=== PATIENT | female | born 1990 | race Caucasian/White ===

== ENCOUNTER 2016-08-23 16:20 | Observation (INO) | payer OTHER ==
[2016-08-23] MEDS ORDERED: MORPHINE SULFATE 10 MG/ML SYRINGE IV ONE (17:35)
[2016-08-23] MEDS ORDERED: ONDANSETRON 4 MG/2 ML VIAL IVP STA (17:35)
[2016-08-23] MEDS ORDERED: KETOROLAC 30 MG/ML 1 ML VIAL IVP STA (17:35)
[2016-08-23] MEDS ORDERED: ACETAMINOPHEN TAB 325 MG TAB PO STA (18:07)
[2016-08-23] MEDS ORDERED: METOCLOPRAMIDE 5 MG/ML 2 ML VIAL IVP STA (18:08)
[2016-08-23] MEDS ORDERED: diphenhydrAMINE 50 MG/ML 1 ML VIAL IVP STA (18:08)
[2016-08-23 18:12] LABS: Basophils % (A) 0 %; CH 31.7; CHCM 34.6; Eosinophils # (A) 0.3 k/uL (0-0.7); Eosinophils % (A) 3 %; HCT 39.6 % (34.0-46.0); HDW 2.17; HGB 13.9 gm/dL (11.4-16.0); Luc # (Auto) 0.12; Luc % (Auto) 1; Lymphocytes # (A) 2.5 k/uL (1.0-4.8); Lymphocytes % (A) 24 %; MCH 32.3 pg (25.0-35.0); MCHC 35.1 g/dL (31.0-37.0); MCV 91.9 fL (80.0-100.0); Mean Platelet Volume 7.5; Monocytes # (A) 0.4 k/uL (0-1.0); Monocytes % (A) 4 %; Neutrophils # (A) 7.1 k/uL (1.3-7.7); Neutrophils % (A) 68 %; RBC 4.31 m/uL (3.80-5.40); RDW 12.8 % (11.5-15.5); WBC 10.4 k/uL (3.8-10.6); WBC (Perox) 9.78
--- NOTE | 2016-08-23 18:21 | ED ---
General Adult HPI - General Chief complaint: Abdominal Pain Stated complaint: Flank Pain Time Seen by Provider: 08/23/16 17:16 Source: patient Mode of arrival: ambulatory Limitations: no limitations - History of Present Illness Initial comments: Patient is a 26-year-old female who presents with a chief complaint of left- sided flank pain. Patient states that she's had a dull ache/fullness on the left side of her abdomen for a week now. She states this morning she woke up with a very sharp pain. She describes the pain as stabbing, starting in the left flank, radiating to the left groin. She cannot identify any aggravating or alleviating factors. She has never had similar incidences before, does not have a history of kidney stones. Patient states that she has also had some vaginal bleeding. She thinks she may be on her normal menstrual cycle however she has been bleeding longer this time. She does not report a concerning amount of blood. Patient states that she is unsure of her status. Patient is a . She does not have a history of PID, or other STDs. Onset/Timin -: days(s) Location: abdomen, left Radiation: other (Groin) Severity scale (1-10): 8 Quality: sharp Consistency: intermittent Improves with: none Worsens with: none Associated Symptoms: nausea/vomiting Treatments Prior to Arrival: none - Related Data Home Medications Medication Instructions Recorded Confirmed No Known Home Medications [No 08/23/16 08/23/16 Known Home Medications] Allergies Allergy/AdvReac Type Severity Reaction Status Date / Time No Known Allergies Allergy Verified 07/25/14 11:33 Review of Systems ROS Statement: Those systems with pertinent positive or pertinent negative responses have been documented in the HPI. Patient denies dizziness, headache, lightheadedness, visual changes, shortness of breath, chest pain, constipation, diarrhea. Patient does admit to urinary frequency, nausea, vomiting, and abdominal pain. ROS Other: All systems not noted in ROS Statement are negative. Past Medical History Past Medical History: No Reported History History of Any Multi-Drug Resistant Organisms: None Reported Past Surgical History: Section, Tonsillectomy Past Anesthesia/Blood Transfusion Reactions: Postoperative Nausea & Vomiting ( PONV) Past Psychological History: No Psychological Hx Reported Smoking Status: Never smoker Past Alcohol Use History: None Reported Past Drug Use History: Marijuana - Past Family History Mother Family Medical History: Hypertension General Exam Limitations: no limitations General appearance: alert, other (Patient appears uncomfortable) Head exam: Present: atraumatic, normocephalic Eye exam: Present: normal appearance ENT exam: Present: mucous membranes moist Neck exam: Present: normal inspection Respiratory exam: Present: normal lung sounds bilaterally Cardiovascular Exam: Present: regular rate, normal rhythm GI/Abdominal exam: Present: soft, tenderness (Patient has CVA tenderness in the left flank. Patient has suprapubic, right lower, left lower quadrant tenderness to palpation. Abdomen is non-peritoneal) Rectal exam: Present: deferred Extremities exam: Present: normal inspection Back exam: Present: CVA tenderness (L) Neurological exam: Present: alert, oriented X3, CN II-XII intact, normal gait Psychiatric exam: Present: normal affect, normal mood Skin exam: Present: warm, dry, intact Course Vital Signs 08/23/16 08/23/16 08/23/16 16:23 18:06 20:35 Temperature 98.5 F 97.5 F L Pulse Rate 74 64 61 Respiratory 16 18 15 Rate Blood Pressure 107/57 103/58 106/55 O2 Sat by Pulse 97 98 99 Oximetry Medical Decision Making - Medical Decision Making Patient is a 26-year-old female presents with a chief complaint of left flank, and abdominal pain. History and physical exam is consistent with a renal stone. We'll send a BC, BMP, urinalysis, and test. If test is negative, I intend to give patient morphine, Toradol, Zofran, and sent for a computed tomography scan. Evaluation shows a positive POC test. Follow-up quantitative is just over 1000. This point the patient will be sent for an ultrasound of the abdomen , ultrasound of the pelvis. Ultrasound was concerning for a 3.5 cm mildly vascular solid mass adjacent to the left ovary. There is free fluid within the adnexa that appears to be blood. Several attempts were made to contact Dr. Chen, [facility] on-call though we were unsuccessful. Dr. Case was contacted for OB consultation. Dr. Colvin states that he will try to get a hold of Dr. Chen. In the meantime we will move forward with admission for observation, and consult to [facility]. Reexamination, the patient's abdomen remains non-peritoneal. Her vital signs are stable. She was updated on results. I discussed with her admission for serial abdominal exams, and consult [facility]. Her and her are agreeable with this plan at this time. 9:49 PM I spoke with Dr. Chen who agrees that the patient should be admitted for observation. At this time she would like to send liver profile, type and screen , and would like pharmacy to dose methotrexate. - Lab Data Result diagrams: 08/23/16 18:02 08/23/16 18:02 Lab Results 08/23/16 08/23/16 08/23/16 Range/Units 17:31 18:02 18:02 WBC 10.4 (3.8-10.6) k/uL RBC 4.31 (3.80-5.40) m/uL Hgb 13.9 (11.4-16.0) gm/dL Hct 39.6 (34.0-46.0) % MCV 91.9 (80.0-100.0) fL MCH 32.3 (25.0-35.0) pg MCHC 35.1 (31.0-37.0) g/dL RDW 12.8 (11.5-15.5) % Plt Count 290 (150-450) k/uL Neutrophils % 68 % Lymphocytes % 24 % Monocytes % 4 % Eosinophils % 3 % Basophils % 0 % Neutrophils # 7.1 (1.3-7.7) k/uL Lymphocytes # 2.5 (1.0-4.8) k/uL Monocytes # 0.4 (0-1.0) k/uL Eosinophils # 0.3 (0-0.7) k/uL Basophils # 0.0 (0-0.2) k/uL Sodium 140 (137-145) mmol/L Potassium 3.8 (3.5-5.1) mmol/L Chloride 109 H (98-107) mmol/L Carbon Dioxide 22 (22-30) mmol/L Anion Gap 9 mmol/L BUN 12 (7-17) mg/dL Creatinine 0.52 (0.52-1.04) mg/dL Est GFR (MDRD) Af Amer >60 (>60 ml/min/1.73 sqM) Est GFR (MDRD) Non-Af >60 (>60 ml/min/1.73 sqM) Glucose 80 (74-99) mg/dL Calcium 9.2 (8.4-10.2) mg/dL HCG, Quant mIU/mL Urine HCG, Qual Detected (Not Detectd) 08/23/16 Range/Units 18:02 WBC (3.8-10.6) k/uL RBC (3.80-5.40) m/uL Hgb (11.4-16.0) gm/dL Hct (34.0-46.0) % MCV (80.0-100.0) fL MCH (25.0-35.0) pg MCHC (31.0-37.0) g/dL RDW (11.5-15.5) % Plt Count (150-450) k/uL Neutrophils % % Lymphocytes % % Monocytes % % Eosinophils % % Basophils % % Neutrophils # (1.3-7.7) k/uL Lymphocytes # (1.0-4.8) k/uL Monocytes # (0-1.0) k/uL Eosinophils # (0-0.7) k/uL Basophils # (0-0.2) k/uL Sodium (137-145) mmol/L Potassium (3.5-5.1) mmol/L Chloride (98-107) mmol/L Carbon Dioxide (22-30) mmol/L Anion Gap mmol/L BUN (7-17) mg/dL Creatinine (0.52-1.04) mg/dL Est GFR (MDRD) Af Amer (>60 ml/min/1.73 sqM) Est GFR (MDRD) Non-Af (>60 ml/min/1.73 sqM) Glucose (74-99) mg/dL Calcium (8.4-10.2) mg/dL HCG, Quant 1014.8 mIU/mL Urine HCG, Qual (Not Detectd) Disposition Clinical Impression: Ectopic of ovary, Nausea and vomiting, Flank pain, Left lower quadrant pain Disposition: ADMITTED IP TO THIS [facility] Condition: Fair Referrals: None,Stated [Primary Care Provider] - 1-2 days Decision to Admit Reason: Admit from EC
[2016-08-23 18:22] LABS: Anion Gap 9 mmol/L; Blood Urea Nitrogen 12 mg/dL (7-17); Calcium 9.2 mg/dL (8.4-10.2); Carbon Dioxide 22 mmol/L (22-30); Chloride 109 mmol/L (98-107); Glucose 80 mg/dL (74-99); Non-African American GFR(MDRD) >60 (>60 ml/min/1.73 sqM); Potassium 3.8 mmol/L (3.5-5.1); Sodium 140 mmol/L (137-145)
--- NOTE | 2016-08-23 20:02 | US ---
EXAMINATION TYPE: US abdomen complete DATE OF EXAM: 08/23/2016 COMPARISON: NONE CLINICAL HISTORY: Pain. Lt back/flank pain x 2 days, newly EXAM MEASUREMENTS: Liver Length: 17.6 cm Gallbladder Wall: 0.3 cm CBD: 0.4 cm Spleen: 10.7 cm Right Kidney: 10.4 x 5.0 x 4.7 cm Left Kidney: 10.4 x 4.4 x 4.6 cm Pancreas: wnl Liver: wnl Gallbladder: wnl Evidence for sonographic Montanez's sign: no CBD: wnl Spleen: small inferior splenule seen, wnl Right Kidney: wnl Left Kidney: wnl Upper IVC: wnl Abd Aorta: distal portion obscured by bowel gas, otherwise wnl The liver is homogenous. The intrahepatic portion of the IVC and proximal abdominal aorta are within normal limits. There is no evidence of cholelithiasis. Common bile duct is unremarkable. The visu alized portions of the pancreas are homogenous. The spleen is unremarkable. Kidneys are symmetric a nd free of hydronephrosis. No renal lesions are seen. IMPRESSION: NO ACUTE PROCESS; NO FOCAL FINDINGS.
--- NOTE | 2016-08-23 20:07 | US ---
EXAMINATION TYPE: US OB <=14 wks transvag DATE OF EXAM: 08/23/2016 COMPARISON: NONE CLINICAL HISTORY: Pain. Lt back pain x 2 days, light bleeding on and off for 10 days EXAM PERFORMED: OBTA/OBTV EXAM MEASUREMENTS: GESTATIONAL AGE / DATING Physician Established: not established Dates by LMP: (6 weeks/3 days) EDC: 04/15/2017 Dates by First Scan: NURSING SCHEDULER Dates by Current Scan for: N/A MATERNAL ANATOMY Uterus: 9.2 x 5.4 x 4.7cm Right Ovary: 2.6 x 1.8 x 2.0cm Left Ovary: 2.9 x 3.0 x 2.4cm Post CDS / Adnexa: Free fluid noted with low level echoes indicative of blood Presence of free fluid: yes as described above Presence of corpus luteal cyst: left ovary = 2.0cm Presence of subchorionic bleed: no GESTATION / SURVEY IUP: No IUP seen at this time Date of LMP: 07/09/2016 Beta HcG (if available): pending [place] is a 3.5 cm mean diameter solid lesion noted adjacent to, or apart of, the inferior margin of th e left ovary. This finding shows mild vascularity within. IMPRESSION: 1. NO INTRAUTERINE . 2. MODERATE CUL-DE-SAC FLUID WITH LOW LEVEL ECHOES THROUGHOUT, CONSISTENT WITH HEMOPERITONEUM. 3. SUSPICIOUS LEFT ADNEXAL SOLID LESION.
[2016-08-23] MEDS ORDERED: NALOXONE 0.4 MG/ML 1 ML VIAL IV PRN (21:50)
[2016-08-23] MEDS ORDERED: METHOTREXATE SODIUM (PF) 25 MG/ML 2 ML VIAL IM ONE ×2 (22:15)
[2016-08-23] MEDS: MORPHINE SULFATE 4 MG/ML SYRINGE IV PRN (22:52)
[2016-08-24] MEDS: LACTATED RINGERS 1,000 ML IV SCH ×2 (00:11→11:21)
[2016-08-24 00:30] VITALS: BMI 26.4
[2016-08-24] MEDS: MORPHINE SULFATE 4 MG/ML SYRINGE IV PRN (01:52)
--- NOTE | 2016-08-24 03:55 | P.HPOB ---
History of Present Illness H&P Date: 08/24/16 (Increasing abdominal pain, nausea and vomiting.) Chief Complaint: Increasing abdominal pain, nausea and vomiting. This is a 26-year-old white female 3 para 2002 last menstrual period at 6-5/7 weeks' gestation. Patient presented through the emergency room last night with left lower quadrant pain. Evaluation revealed urine hCG which came back positive, confirmed by Bhcg of approximately 1,014. Ultrasound revealed a 3.5 cm solid appearing left adnexal mass that appeared to be intact, no heart rate, nothing in the intrauterine cavity. Patient was hemodynamically stable, her pain was well controlled, hemoglobin 13.9, and after discussion decision was made to treat the patient with methotrexate. This was dosed per pharmacy and given to her at approximately 11 PM. She was given morphine sulfate with good pain relief and brought to observation for monitoring throught the night. At approximate 2 AM the patient complained of increasing left lower quadrant pain. Morphine sulfate was again given but this time with no relief. Her pain has accelerated since that time, she reports it to be 8/10 and is now experiencing vomiting. Vital signs have remained stable, pulse currently 64, blood pressure 121/74. On examination however, she is experiencing rebound and guarding as noted below. Past medical history is essentially negative. Past surgical history section 2012, repeat 2014. She has had a previous tonsillectomy and adenoidectomy. ALLERGIES none known. Current medications none. Social history patient is , she denies alcohol tobacco or drug use. On exam this is a pleasant white female, 5 foot 1 inch, 140 pounds, vital signs are stable as noted above, temperature 97.2, 99% O2 saturation, respirations 16 , pulse 64, blood pressure 121/74. HEENT examination reveals good dentition, no obvious thyromegaly. The chest is clear in all iglesias anteriorly and posteriorly. Cardiac exam reveals regular rate and rhythm with no murmur click or rub. Extremities reveal no edema. Abdomen is soft, exquisitely tender in the left lower quadrant with rebound and guarding. She is also tender suprapubically. Pelvic examination was is deferred until the operating room setting. Labs include hemoglobin 13.9, hematocrit 39.6, white count 10.4, platelets 290, 000. Blood type is A+. Impression: Suspect ruptured left ectopic . Plan: I have discussed with the patient and her are planning at this time. We will proceed with exploratory laparotomy, possible left salpingostomy , possible left salpingo-oophorectomy and surgery as deemed necessary. I've reviewed with her the risks of surgery to include but not be exclusive of bleeding, infection, perforation or damage to bowel, bladder, ureters or indeed any pelvic or abdominal organs. She understands the possible need for blood transfusion and infectious diseases to which she would be exposed. She understands the risks of anesthesia, aspiration, nerve damage or even . All questions are answered and I believe the patient and her both understand our discussion thoroughly. Seizure team is aware and on way. Review of Systems As noted in HPI Past Medical History Past Medical History: No Reported History History of Any Multi-Drug Resistant Organisms: None Reported Past Surgical History: Section, Tonsillectomy Past Anesthesia/Blood Transfusion Reactions: Postoperative Nausea & Vomiting ( PONV) Past Psychological History: No Psychological Hx Reported Smoking Status: Never smoker Past Alcohol Use History: None Reported Past Drug Use History: None Reported - Past Family History Mother Family Medical History: Cancer Additional Family Medical History / Comment(s): breast cancer Medications and Allergies Home Medications Medication Instructions Recorded Confirmed Type No Known Home Medications [No 08/23/16 08/24/16 History Known Home Medications] Allergies Allergy/AdvReac Type Severity Reaction Status Date / Time No Known Allergies Allergy Verified 08/24/16 00:20 Exam - Vital Signs Vital signs: Vital Signs Temp Pulse Pulse Resp BP BP Pulse Ox 08/24/16 03:18 97.2 F L 64 16 121/74 97 08/24/16 00:30 98.0 F 73 16 112/68 100 08/23/16 23:12 98.0 F 66 16 102/58 98 08/23/16 20:35 97.5 F L 61 15 106/55 99 08/23/16 18:06 64 18 103/58 98 08/23/16 16:23 98.5 F 74 16 107/57 97 Intake and Output 08/23/16 08/23/16 08/24/16 14:59 22:59 06:59 Other: Weight 63.503 kg 63.503 kg Patient Weight 08/24/16 06:59 Weight 63.503 kg See dictation under HPI Results Result Diagrams: 08/23/16 18:02 08/23/16 18:02 Abnormal Lab Results - Last 24 Hours (Table) 08/23/16 Range/Units 18:02 Chloride 109 H (98-107) mmol/L Assessment and Plan Plan: At this time we will proceed to the operating room for exploratory laparotomy, possible left salpingostomy, possible left salpingo-oophorectomy and surgery as deemed necessary. The patient is declining option for bilateral tubal ligation. Risks of operating room, anesthesia and procedure have all been discussed with the patient in detail, including bleeding, infection, perforation or damage to bowel, bladder, ureters, blood vessels or indeed any pelvic or abdominal organs. She understands the risk of anesthesia, aspiration , nerve damage or even . All questions of been answered and I believe she and her both understand our discussion without question. Time with Patient: Greater than 30
[2016-08-24] MEDS ORDERED: METOCLOPRAMIDE 5 MG/ML 2 ML VIAL IVP ONE (04:50)
[2016-08-24] MEDS ORDERED: SUCCINYLCHOLINE CHLORIDE 100 MG/5 ML SYR IV ONE (04:59)
[2016-08-24] MEDS ORDERED: fentaNYL (PF) 50 MCG/ML 2 ML AMP ONE (04:59)
[2016-08-24] MEDS ORDERED: ONDANSETRON 4 MG/2 ML VIAL ONE (04:59)
[2016-08-24] MEDS ORDERED: KETOROLAC 30 MG/ML 1 ML VIAL ONE (04:59)
[2016-08-24] MEDS ORDERED: ROCURONIUM BROMIDE 10 MG/ML 10 ML VIAL IV ONE (04:59)
[2016-08-24] MEDS ORDERED: GLYCOPYRROLATE 0.2 MG/ML 2 ML VIAL ONE (04:59)
[2016-08-24] MEDS ORDERED: MIDAZOLAM 2 MG/2 ML VIAL ONE (04:59)
[2016-08-24] MEDS ORDERED: NEOSTIGMINE 1 MG/ML 10 ML VIAL ONE (04:59)
[2016-08-24] MEDS ORDERED: PROPOFOL 10 MG/ML 20 ML VIAL IV ONE (04:59)
[2016-08-24] MEDS ORDERED: IV FLUID CONTINUATION 1,000 ML IV ONE (05:05)
[2016-08-24] MEDS ORDERED: SODIUM CHLORIDE 0.9% 50 ML with ceFAZolin 2,000 MG IV ONE ×2 (05:05)
[2016-08-24] MEDS ORDERED: CELLULOSE,OXIDIZED 1 EACH EACH MISCELLANE ONE (05:29)
[2016-08-24] MEDS ORDERED: LACTATED RINGERS 1,000 ML IV ONE (05:41)
[2016-08-24] MEDS ORDERED: ONDANSETRON 4 MG/2 ML VIAL IVP PRN (05:54)
[2016-08-24] MEDS ORDERED: METOCLOPRAMIDE 5 MG/ML 2 ML VIAL IVP PRN (05:54)
[2016-08-24] MEDS ORDERED: diphenhydrAMINE 50 MG/ML 1 ML VIAL IVP PRN (05:54)
[2016-08-24] MEDS ORDERED: ZOLPIDEM 5 MG TAB PO PRN (05:54)
[2016-08-24] MEDS ORDERED: IBUPROFEN 600 MG TAB PO PRN (05:54)
[2016-08-24] MEDS ORDERED: KETOROLAC 30 MG/ML 1 ML VIAL IVP PRN (05:54)
[2016-08-24] MEDS ORDERED: SIMETHICONE 80 MG CHEWABLE PO PRN (05:54)
[2016-08-24] MEDS ORDERED: Acetaminophen-Codeine 300-30mg TAB PO PRN (05:54)
--- NOTE | 2016-08-24 05:54 | P.OP ---
Date of Procedure: 08/24/16 Preoperative Diagnosis: Suspect ruptured left ectopic Postoperative Diagnosis: Ruptured left ectopic Procedure(s) Performed: Exploratory laparotomy, left salpingectomy Implants: Anesthesia: ROSIEA Surgeon: Deena Yeboah Estimated Blood Loss (ml): 300 IV fluids (ml): 800 Urine output (ml): 100 Pathology: other Condition: stable (Left fallopian tube) Disposition: PACU Indications for Procedure: Operative Findings: Description of Procedure: Patient is brought to the operating suite where a general anesthetic is administered without difficulty. She's placed in the dorsal supine position. Ellis catheter placed to direct drainage. The abdomen is prepped and draped in usual sterile fashion. The appropriate timeout was performed to assure proper patient procedure identification. 2 g of Ancef were given prophylactically. A low transverse incision is made over the top of the previous section scar. This was taken down to the subcutaneous tissue to the fascia. Fascia is isolated, scored and extended bilaterally with curved Aguilar scissors. Peritoneum was then tented with hemostats, opened with the Metzenbaum scissor and upon opening the peritoneal cavity approximately 300 mL of old blood and clot are encountered. The left tube and ovary are placed into the surgical field. The ovary appears normal, there is a ruptured left top completely obliterating the fimbriated end of the tube. For this reason, the left fallopian tube is removed. It is grasped with a Nayla clamp, clamped with a Nathalie, removed. The pedicle is tied with 0 Vicryl suture, flashed, and retied for excellent hemostasis. The left adnexa is placed back into the peritoneal cavity. The uterus and right ovary and tube are all visualized, inspected and noted to be normal. The pelvis is then generously irrigated with sterile saline. Interceed was used to wrap around the left adnexa and it is placed back gently into the peritoneal cavity. Peritoneum is closed with a single [id number] suture of 2-0 Vicryl. Fascia is closed in a running stitch of 0 Vicryl with over ligation in the midline. Subcutaneous tissue is irrigated, noted to be clean and dry. It is reapproximated with 2-0 Vicryl in a running fashion. 4-0 undyed Vicryl issues for final subcuticular closure. Steri-Strips and Mastisol are applied to the wound. Urine is noted to be clear in the Ellis tube. All sponge needle and enhancement counts are correct at the end of the procedure. Patient is brought back to the recovery room in very good condition with stable vital signs including blood pressure 104/62, pulse 52, 98% O2 saturation. Competitions: None. Patient's blood type is Rh+ and therefore Khadar was not indicated.
[2016-08-24] MEDS ORDERED: NALOXONE 0.4 MG/ML 1 ML VIAL IV PRN (05:56)
[2016-08-24] MEDS ORDERED: MORPHINE PCA 30 MG/30 ML SYRINGE IV PRN (05:56)
[2016-08-24 06:12] VITALS: RESP 16
[2016-08-24 11:23] LABS: Basophils % (A) 0 %; CH 31.9; CHCM 34.1; Eosinophils # (A) 0.1 k/uL (0-0.7); Eosinophils % (A) 1 %; HCT 37.1 % (34.0-46.0); HGB 12.7 gm/dL (11.4-16.0); Luc % (Auto) 1; Lymphocytes # (A) 1.3 k/uL (1.0-4.8); Lymphocytes % (A) 9 %; MCH 32.2 pg (25.0-35.0); MCHC 34.3 g/dL (31.0-37.0); Mean Platelet Volume 7.5; Monocytes # (A) 0.7 k/uL (0-1.0); Monocytes % (A) 5 %; Neutrophils # (A) 11.7 k/uL (1.3-7.7); Neutrophils % (A) 85 %; RBC 3.95 m/uL (3.80-5.40); RDW 12.3 % (11.5-15.5); WBC 13.8 k/uL (3.8-10.6); WBC (Perox) 14.03
[2016-08-24 11:30] LABS: ALT 27 U/L (9-52); AST 30 U/L (14-36); Alkaline Phosphatase 33 U/L (38-126); Anion Gap 11 mmol/L; Blood Urea Nitrogen 7 mg/dL (7-17); Calcium 8.2 mg/dL (8.4-10.2); Carbon Dioxide 20 mmol/L (22-30); Chloride 108 mmol/L (98-107); Glucose 98 mg/dL (74-99); Non-African American GFR(MDRD) >60 (>60 ml/min/1.73 sqM); Potassium 3.8 mmol/L (3.5-5.1); Sodium 139 mmol/L (137-145); Total Protein 5.6 g/dL (6.3-8.2)
[2016-08-24 17:39] VITALS: BP 122/62; PULSE 71; TEMP 97.9
[2016-08-25] MEDS ORDERED: ACETAMINOPHEN TAB 325 MG TAB PO PRN (05:55)
--- NOTE | 2016-08-26 12:14 | DS ---
DATE OF DISCHARGE: 08/24/2016 This is a 26-year-old white female, 3, para 2-0-0-2, estimated gestational age of 6-3/7th weeks who presented to the emergency room. She was noted to have a left sided ectopic , stable upon admission. Decision was made to proceed with methotrexate therapy, this was dosed by pharmacy and given at approximately 11 p.m. Throughout the night, the patient became much more uncomfortable with pain and began having vomiting. On examination, she had left sided rebound and guarding and decision was then made to go to the operating room for exploratory laparotomy. Please see my dictated history and physical for details. In the operating room, the patient was noted to have hemoperitoneum along with a ruptured left fimbrial . The left tube was removed, ovary appeared normal and was left in situ. The right tube and ovary as well as uterus appeared normal. Pelvis was generously irrigated, ( ) was wrapped around the left adnexa. Please see my dictated operative note for details. Estimated blood loss 300 mL. As the day progressed, the patient felt well. She was voiding, ambulating, passing flatus without difficulty. She was requested discharge home. She has 2 small children at home, felt well, denied light-headedness or dizziness, and was given a prescription for Tylenol No.3 to be used as needed for pain. I discussed with the patient that I felt that her discharge home was premature, however, she lives locally, has good family support and again requested discharge home. The patient was discharged home in good condition. I reminded her to follow up with me in the office in 2 weeks. I have reminded her no intercourse, tampons , or douching. She will use Tylenol No. 3 as needed for pain, and will alternate this with Ibuprofen products over the counter. I reviewed with her proper incisional care. I asked her to call me with any fever, shakes or chills , unusual vaginal drainage with any pain not alleviated by this regime, or indeed with any concerns. Her blood type is Rh positive and she does not therefore need a RhoGAM shot. [facility]
== END 2016-08-24 18:20 | disposition home or self-care (01) ==
LOC: EC 16:20 → 6PED 21:51
PROVIDERS: ADMIT Obstetrics & Gynecology; ATTEND Obstetrics & Gynecology
DX: O00.90 Unspecified ectopic pregnancy without intrauterine pregnancy (principal); K66.1 Hemoperitoneum; O21.9 Vomiting of pregnancy, unspecified; N83.9 Noninflammatory disorder of ovary, fallopian tube and broad ligament, unspecified; Z3A.01 Less than 8 weeks gestation of pregnancy; R10.32 Left lower quadrant pain; O20.9 Hemorrhage in early pregnancy, unspecified; R11.2 Nausea with vomiting, unspecified; Z82.49 Family history of ischemic heart disease and other diseases of the circulatory system; M54.9 Dorsalgia, unspecified; Z80.3 Family history of malignant neoplasm of breast
CPT/HCPCS: 58661; 96372 ×3; 96374 ×2; 96375 ×3; 96376 ×2; 99285 ×2; 36415; 88305; 86901; 86900; 80053; 80048; 85025 ×2; 86850; 81025; 84702; 76700; 76801; 76817; G0378 ×2; J2250; J2270 ×3; J1200; J9260; J2710; J2765 ×2; J2405; J3010; J1885; J0690; J0330; J2704

== ENCOUNTER 2016-08-25 07:52 | Emergency (ER) | payer OTHER ==
[2016-08-25 08:09] VITALS: RESP 18
[2016-08-25] MEDS ORDERED: SODIUM CHLORIDE 0.9% 1,000 ML IV STA ×2 (08:29)
[2016-08-25] MEDS ORDERED: PANTOPRAZOLE 40 MG/10 ML VIAL IVP STA (08:29)
[2016-08-25] MEDS ORDERED: ONDANSETRON 4 MG/2 ML VIAL IVP PRN (08:29)
[2016-08-25] MEDS ORDERED: ONDANSETRON 4 MG/2 ML VIAL IVP STA (08:29)
[2016-08-25] MEDS ORDERED: MORPHINE SULFATE 4 MG/ML SYRINGE IVP PRN (08:29)
[2016-08-25] MEDS ORDERED: SODIUM CHLORIDE 0.9% 500 ML IV STA (08:29)
[2016-08-25] MEDS: MORPHINE SULFATE 4 MG/ML SYRINGE IVP STA ×2 (08:35→10:37)
[2016-08-25] MEDS ORDERED: ACETAMINOPHEN IV (For NPO) 1,000 MG in EMPTY BAG 1 BAG IVPB STA (08:50)
[2016-08-25] MEDS ORDERED: diphenhydrAMINE 50 MG/ML 1 ML VIAL IVP STA (08:59)
[2016-08-25] MEDS ORDERED: PANTOPRAZOLE 40 MG/10 ML VIAL IVP SCH (09:00)
[2016-08-25] MEDS ORDERED: METOCLOPRAMIDE 5 MG/ML 2 ML VIAL IVP STA (09:14)
[2016-08-25] MEDS ORDERED: TRIMETHOBENZAMIDE 100 MG/ML 2 ML VIAL IM STA (09:14)
[2016-08-25] MEDS ORDERED: PROCHLORPERAZINE 5 MG TAB PO STA (09:14)
--- NOTE | 2016-08-25 09:16 | ED ---
General Adult HPI - General Chief complaint: Recheck/Abnormal Lab/Rx Stated complaint: post op problems Source: patient, RN/MD, EMS, RN notes reviewed, old records reviewed Mode of arrival: EMS Limitations: no limitations - History of Present Illness Initial comments: This is a 26-year-old female to the ER for evaluation tonight. Patient's persistent ear as a transfer patient from [facility] for evaluation regards to postop pain. Patient recently had ovary removal secondary to ruptured ectopic. Patient herself does not feel lightheaded or dizzy. No difficulties with urination. Patient is feeling mild symptom improvement with symptom control. No fevers. - Related Data Home Medications Medication Instructions Recorded Confirmed No Known Home Medications [No 08/23/16 08/25/16 Known Home Medications] Allergies Allergy/AdvReac Type Severity Reaction Status Date / Time No Known Allergies Allergy Verified 08/25/16 08:31 Review of Systems ROS Statement: Those systems with pertinent positive or pertinent negative responses have been documented in the HPI. ROS Other: All systems not noted in ROS Statement are negative. Past Medical History Past Medical History: No Reported History History of Any Multi-Drug Resistant Organisms: None Reported Past Surgical History: Section, Tonsillectomy Additional Past Surgical History / Comment(s): ectopic with rupture () Past Anesthesia/Blood Transfusion Reactions: Postoperative Nausea & Vomiting ( PONV) Past Psychological History: No Psychological Hx Reported Smoking Status: Never smoker Past Alcohol Use History: None Reported Past Drug Use History: None Reported - Past Family History Mother Family Medical History: Cancer Additional Family Medical History / Comment(s): breast cancer General Exam Limitations: no limitations General appearance: alert, in no apparent distress Head exam: Present: atraumatic, normocephalic, normal inspection Eye exam: Present: normal appearance, PERRL, EOMI. Absent: scleral icterus, conjunctival injection, periorbital swelling ENT exam: Present: normal exam, mucous membranes moist Neck exam: Present: normal inspection. Absent: tenderness, meningismus, lymphadenopathy Respiratory exam: Present: normal lung sounds bilaterally. Absent: respiratory distress, wheezes, rales, rhonchi, stridor Cardiovascular Exam: Present: regular rate, normal rhythm, normal heart sounds. Absent: systolic murmur, diastolic murmur, rubs, gallop, clicks GI/Abdominal exam: Present: soft, normal bowel sounds. Absent: distended, tenderness, guarding, rebound, rigid Extremities exam: Present: normal inspection, full ROM, normal capillary refill. Absent: tenderness, pedal edema, joint swelling, calf tenderness Back exam: Present: normal inspection Neurological exam: Present: alert, oriented X3, CN II-XII intact Psychiatric exam: Present: normal affect, normal mood Skin exam: Present: warm, dry, intact, normal color. Absent: rash Course Vital Signs 08/25/16 08:03 Temperature 98.9 F Pulse Rate 78 Respiratory 18 Rate Blood Pressure 105/49 O2 Sat by Pulse 99 Oximetry - Reevaluation(s) Reevaluation #1: 08/25/16 09:16 Patient's medical records thoroughly reviewed Medical Decision Making - Medical Decision Making 22 for female here for evaluation of postop pain, nausea vomiting. Venoms are much improved and control at this time. Patient is in no acute distress and can be discharged home lab work has remained baseline, vital signs are normal and stable Disposition Clinical Impression: Ectopic of ovary, Post-op pain, Nausea & vomiting Disposition: HOME SELF-CARE Referrals: None,Stated [Primary Care Provider] - 1-2 days
[2016-08-25 11:48] VITALS: BP 110/69; PULSE 78; TEMP 98.4
== END 2016-08-25 11:48 | disposition home or self-care (01) ==
LOC: EC 07:52
DX: O00.20 Ovarian pregnancy without intrauterine pregnancy (principal); G89.18 Other acute postprocedural pain; R11.2 Nausea with vomiting, unspecified; Z90.721 Acquired absence of ovaries, unilateral; Z53.20 Procedure and treatment not carried out because of patient's decision for unspecified reasons
CPT/HCPCS: 99284; 96374; 96375 ×4; 96360; 96361 ×2; J2270; J1200; J2765; J2405; J0131; C9113

== ENCOUNTER 2016-12-31 14:14 | Emergency (ER) | payer OTHER ==
[2016-12-31] MEDS ORDERED: SODIUM CHLORIDE 0.9% 2,000 ML IV STA (14:28)
[2016-12-31] MEDS ORDERED: METOCLOPRAMIDE 5 MG/ML 2 ML VIAL IVP STA (14:28)
--- NOTE | 2016-12-31 14:52 | ED ---
Nausea/Vomiting/Diarrhea HPI - General Chief complaint: Nausea/Vomiting/Diarrhea Stated complaint: Vomiting. 13 wks preg Time Seen by Provider: 12/31/16 14:24 Source: patient, RN notes reviewed Mode of arrival: wheelchair Limitations: no limitations - History of Present Illness Initial comments: 26-year-old female presents emergency Department chief complaint nausea vomiting. Patient states she currently is depression 14 weeks who is A1 and scheduled to see her OB in 2 weeks. Patient states that she developed nausea vomiting this morning and has been unable to stop. She denies any diarrhea or constipation. Denies any dysuria, hematuria. She's had issues with nausea vomiting and prior pregnancies. Patient states that she took Zofran prior arrival. Patient states he did not help much. Denies fever, chills. She has had a ectopic with left tubal removal. 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 Patient denies vaginal bleeding or vaginal discharge - Related Data Previous Rx's Medication Instructions Recorded Metoclopramide [Reglan] 10 mg PO TID PRN #15 tab 12/31/16 Allergies Allergy/AdvReac Type Severity Reaction Status Date / Time No Known Allergies Allergy Verified 12/31/16 14:44 Review of Systems ROS Statement: Those systems with pertinent positive or pertinent negative responses have been documented in the HPI. ROS Other: All systems not noted in ROS Statement are negative. Past Medical History Past Medical History: No Reported History History of Any Multi-Drug Resistant Organisms: None Reported Past Surgical History: Section, Tonsillectomy Additional Past Surgical History / Comment(s): ectopic with rupture () Past Anesthesia/Blood Transfusion Reactions: Postoperative Nausea & Vomiting ( PONV) Past Psychological History: No Psychological Hx Reported Smoking Status: Never smoker Past Alcohol Use History: None Reported Past Drug Use History: None Reported - Past Family History Mother Family Medical History: Cancer Additional Family Medical History / Comment(s): breast cancer General Exam Limitations: no limitations General appearance: alert, in no apparent distress Head exam: Present: atraumatic, normocephalic, normal inspection Neck exam: Present: normal inspection, full ROM. Absent: tenderness, meningismus, lymphadenopathy Respiratory exam: Present: normal lung sounds bilaterally. Absent: respiratory distress, wheezes, rales, rhonchi, stridor Cardiovascular Exam: Present: regular rate, normal rhythm, normal heart sounds. Absent: systolic murmur, diastolic murmur, rubs, gallop, clicks GI/Abdominal exam: Present: soft, normal bowel sounds. Absent: distended, tenderness, guarding, rebound, rigid Skin exam: Present: warm, dry, intact, normal color. Absent: rash Course Vital Signs 12/31/16 14:17 Temperature 97.1 F L Pulse Rate 78 Respiratory 18 Rate Blood Pressure 113/56 O2 Sat by Pulse 100 Oximetry Medical Decision Making - Medical Decision Making 26-year-old female presented emergency Department chief complaint of nausea vomiting . Patient has a single viable IUP 14 weeks 3 days. Patient has no comp getting fractures at this time. Patient is feeling improved after antiemetics and IV fluids. Patient does show some signs of dehydration though she states she is feeling better has tolerated water and will be discharged with close follow-up return parameters were discussed. - Lab Data Result diagrams: 12/31/16 15:06 12/31/16 15:06 Lab Results 12/31/16 12/31/16 12/31/16 Range/Units 14:53 15:06 15:06 WBC 14.9 H (3.8-10.6) k/uL RBC 4.74 (3.80-5.40) m/uL Hgb 15.0 (11.4-16.0) gm/dL Hct 43.7 (34.0-46.0) % MCV 92.2 (80.0-100.0) fL MCH 31.5 (25.0-35.0) pg MCHC 34.2 (31.0-37.0) g/dL RDW 13.8 (11.5-15.5) % Plt Count 270 (150-450) k/uL Neutrophils % 87 % Lymphocytes % 9 % Monocytes % 3 % Eosinophils % 1 % Basophils % 0 % Neutrophils # 12.9 H (1.3-7.7) k/uL Lymphocytes # 1.4 (1.0-4.8) k/uL Monocytes # 0.4 (0-1.0) k/uL Eosinophils # 0.1 (0-0.7) k/uL Basophils # 0.0 (0-0.2) k/uL Sodium 141 (137-145) mmol/L Potassium 4.1 (3.5-5.1) mmol/L Chloride 109 H (98-107) mmol/L Carbon Dioxide 16 L (22-30) mmol/L Anion Gap 16 mmol/L BUN 10 (7-17) mg/dL Creatinine 0.40 L (0.52-1.04) mg/dL Est GFR (MDRD) Af Amer >60 (>60 ml/min/1.73 sqM) Est GFR (MDRD) Non-Af >60 (>60 ml/min/1.73 sqM) Glucose 84 (74-99) mg/dL Calcium 9.8 (8.4-10.2) mg/dL Total Bilirubin 0.9 (0.2-1.3) mg/dL AST 24 (14-36) U/L ALT 30 (9-52) U/L Alkaline Phosphatase 47 (38-126) U/L Total Protein 7.6 (6.3-8.2) g/dL Albumin 4.7 (3.5-5.0) g/dL Amylase 70 (30-110) U/L Lipase 118 (23-300) U/L Urine Color Yellow Urine Appearance Cloudy H (Clear) Urine pH 6.0 (5.0-8.0) Ur Specific [place] 1.026 (1.001-1.035) Urine Protein 1+ H (Negative) Urine Glucose (UA) Negative (Negative) Urine Ketones 4+ H (Negative) Urine Blood Negative (Negative) Urine Nitrite Negative (Negative) Urine Bilirubin Negative (Negative) Urine Urobilinogen <2.0 (<2.0) mg/dL Ur Leukocyte Esterase Small H (Negative) Urine RBC 8 H (0-5) /hpf Urine WBC 2 (0-5) /hpf Ur Squamous Epith Cells 11 H (0-4) /hpf Urine Bacteria Rare H (None) /hpf Urine Mucus Moderate H (None) /hpf Disposition Clinical Impression: Nausea/vomiting in Disposition: HOME SELF-CARE Condition: Stable Instructions: Nausea and Vomiting in (ED) Additional Instructions: Please return to the Emergency Department if symptoms worsen or any other concerns. Prescriptions: Metoclopramide [Reglan] 10 mg PO TID PRN #15 tab PRN Reason: GERD Referrals: None,Stated [Primary Care Provider] - 1-2 days Carl Campbell DO [Doctor of Osteopathic Medicine] - 1-2 days Time of Disposition: 16:09
[2016-12-31 15:16] LABS: Basophils % (A) 0 %; CH 31.2; Eosinophils # (A) 0.1 k/uL (0-0.7); Eosinophils % (A) 1 %; HCT 43.7 % (34.0-46.0); HDW 2.12; Luc # (Auto) 0.07; Luc % (Auto) 1; Lymphocytes # (A) 1.4 k/uL (1.0-4.8); Lymphocytes % (A) 9 %; MCH 31.5 pg (25.0-35.0); MCHC 34.2 g/dL (31.0-37.0); MCV 92.2 fL (80.0-100.0); Mean Platelet Volume 8.1; Monocytes # (A) 0.4 k/uL (0-1.0); Monocytes % (A) 3 %; Neutrophils # (A) 12.9 k/uL (1.3-7.7); Neutrophils % (A) 87 %; RBC 4.74 m/uL (3.80-5.40); RDW 13.8 % (11.5-15.5); WBC 14.9 k/uL (3.8-10.6); WBC (Perox) 15.09
[2016-12-31 15:18] LABS: Appearance,Urine Cloudy (Clear); Bacteria,Urine Rare /hpf; Bilirubin,Urine Negative (Negative); Glucose,Urine (UA) Negative (Negative); Ketones,Urine 4+ (Negative); Leukocyte Esterase,Urine Small (Negative); Mucus,Urine Moderate /hpf; Nitrite,Urine Negative (Negative); Particle Count 17546; Protein,Urine 1+ (Negative); RBC,Urine 8 /hpf (0-5); Specific Gravity,Urine 1.026 (1.001-1.035); Squamous Epithelial Cell,Urine 11 /hpf (0-4); UA Billing (MACRO vs. MICRO) MICRO; Urobilinogen,Urine <2.0 mg/dL (<2.0); WBC,Urine 2 /hpf (0-5)
[2016-12-31 15:29] LABS: ALT 30 U/L (9-52); AST 24 U/L (14-36); Alkaline Phosphatase 47 U/L (38-126); Amylase 70 U/L (30-110); Anion Gap 16 mmol/L; Blood Urea Nitrogen 10 mg/dL (7-17); Calcium 9.8 mg/dL (8.4-10.2); Carbon Dioxide 16 mmol/L (22-30); Chloride 109 mmol/L (98-107); Glucose 84 mg/dL (74-99); Non-African American GFR(MDRD) >60 (>60 ml/min/1.73 sqM); Potassium 4.1 mmol/L (3.5-5.1); Sodium 141 mmol/L (137-145); Total Bilirubin 0.9 mg/dL (0.2-1.3); Total Protein 7.6 g/dL (6.3-8.2)
--- NOTE | 2016-12-31 16:00 | US ---
EXAMINATION TYPE: US OB >= 14 wk fetus DATE OF EXAM: 12/31/2016 COMPARISON: None CLINICAL HISTORY: Pain Severe nausea. No cramping or pain. Hx of ectopic. TECHNIQUE: Transabdominal (TA) GESTATIONAL AGE / DATING Dates by LMP: (13 weeks/6 days) EDC: 07/02/2017 Dates by Current Scan: (14 weeks/3 days) EDC: 06/28/2017 Beta HCG (if available): Not available at this time SURVEY IUP: Single PLACENTA: Anterior PREVIA: Low Lying- Tip of placenta 1.9 cm away from internal os JARRED: 10.6 cm Normal CERVICAL LENGTH (transabdominal: norm > 3.0cm): 3.3 cm BIOMETRY LIE: Transverse with head maternal L BPD: 2.5 cm 14 weeks / 2 days HC: 9.0 cm 14 weeks / 0 days AC: 7.7 cm 14 weeks / 1 days FL: 1.1 cm 13 weeks / 1 days ESTIMATED WEIGHT IN GRAMS: 81.4 grams ESTIMATED WEIGHT IN LBS/OZ: 0 lbs. 3 oz. WEIGHT PERCENTAGE BASED ON ESTABLISHED DATES: 22.8% HC/AC: 1.2 FL/AC: 13.9 HEART RATE: 147 bpm RHYTHM: Normal Live IUP measuring 14 weeks 3 days. IMPRESSION: Single viable intrauterine corresponding to ultrasound age 14 weeks 3 days with estimated d ate of delivery 06/28/2017.
[2016-12-31] MEDS ORDERED: FAMOTIDINE 20 MG/2 ML VIAL IV STA (16:10)
[2016-12-31] MEDS ORDERED: ONDANSETRON 4 MG/2 ML VIAL IVP STA (16:10)
[2016-12-31] MEDS ORDERED: SODIUM CHLORIDE 0.9% 1,000 ML IV ONE (16:14)
[2016-12-31 17:30] VITALS: BP 101/55; PULSE 83; RESP 16; TEMP 97.6
== END 2016-12-31 17:45 | disposition home or self-care (01) ==
LOC: EC 14:14
DX: O21.9 Vomiting of pregnancy, unspecified (principal); Z3A.14 14 weeks gestation of pregnancy
CPT/HCPCS: 99284; 96374; 96375 ×2; 96361 ×3; 36415; 80053; 82150; 83690; 85025; 81001; 84702; 76805; J2765; J2405

== ENCOUNTER 2017-06-26 05:52 | Inpatient (IN) | payer OTHER ==
[2017-06-24 14:46] VITALS: BMI 35.9
--- NOTE | 2017-06-26 | P.HPOB ---
History of Present Illness H&P Date: 06/26/17 Chief Complaint: Intrauterine at 39 weeks: Prior section with family plan Patient is a 27-year-old at 39 weeks gestation arise for repeat section with tubal ligation. Her course has been uncomplicated however there is some question as to macrosomia with this . Pertinent labs include A+ blood type Rh antibody was negative, rubella immune, hepatitis B surface antigen and RPR were negative. Assessment intrauterine at term, prior section and family planning. Plan repeat low transverse section with bilateral tubal occlusion Past Medical History Past Medical History: No Reported History Additional Past Medical History / Comment(s): OCCASIONAL MIGRAINE, GERD WHILE . History of Any Multi-Drug Resistant Organisms: None Reported Past Surgical History: Section, Tonsillectomy Additional Past Surgical History / Comment(s): ectopic with rupture () Past Anesthesia/Blood Transfusion Reactions: Motion Sickness, Postoperative Nausea & Vomiting (PONV) Past Psychological History: No Psychological Hx Reported Smoking Status: Never smoker Past Alcohol Use History: None Reported Additional Past Alcohol Use History / Comment(s): NO ALCOHOL WHILE Past Drug Use History: None Reported - Past Family History Mother Family Medical History: Cancer Additional Family Medical History / Comment(s): breast cancer Medications and Allergies Home Medications Medication Instructions Recorded Confirmed Type No Known Home Medications [No 06/24/17 06/24/17 History Known Home Medications] Allergies Allergy/AdvReac Type Severity Reaction Status Date / Time No Known Allergies Allergy Verified 06/24/17 14:41 Exam Osteopathic Statement: *. No significant issues noted on an osteopathic structural exam other than those noted in the History and Physical/Consult. - OBG Physical Exam Breast: both: normal (no masses) Abdomen: bowel sounds normal, no diffuse tenderness, no bruit present, no guarding noted, no hepatomegaly, no splenomegaly, no mass Vulva: both: normal Vagina: normal moisture, no discharge Cervix: no lesion, no discharge Uterus: normal size, normal contour Adnexa: both: normal Anus/Rectum: normal perianal skin, no rectal mass, no hemorrhoids, heme negative
[~2017-06-26 05:52] MED LIST: CITRIC ACID-SODIUM CITRATE 15 ML CUP PO ONE; ceFAZolin IN SWFI 2 GM/20 ML SYRINGE IVP ONE
[2017-06-26] MEDS: LACTATED RINGERS 1,000 ML IV SCH ×7 (06:38→23:57)
[2017-06-26 06:50] LABS: Basophils % (A) 0 %; Eosinophils # (A) 0.5 k/uL (0-0.7); Eosinophils % (A) 3 %; HCT 34.4 % (34.0-46.0); Lymphocytes # (A) 3.2 k/uL (1.0-4.8); Lymphocytes % (A) 19 %; MCH 26.8 pg (25.0-35.0); MCHC 31.8 g/dL (31.0-37.0); MCV 84.2 fL (80.0-100.0); Mean Platelet Volume 7.5; Monocytes # (A) 0.8 k/uL (0-1.0); Monocytes % (A) 5 %; Neutrophils # (A) 11.7 k/uL (1.3-7.7); Neutrophils % (A) 71 %; Platelet Count 412 k/uL (150-450); RBC 4.09 m/uL (3.80-5.40); RDW 14.4 % (11.5-15.5); WBC 16.5 k/uL (3.8-10.6)
[2017-06-26] MEDS ORDERED: OXYTOCIN 10 UNIT/ML 1 ML VIAL ONE (07:58)
[2017-06-26] MEDS ORDERED: NALBUPHINE 10 MG/ML AMPUL ONE (07:58)
[2017-06-26] MEDS ORDERED: ONDANSETRON 4 MG/2 ML VIAL ONE (07:58)
[2017-06-26] MEDS ORDERED: PHENYLEPHRINE-0.9% NACL SYG 1 MG/10 ML SYRINGE ONE (07:58)
[2017-06-26] MEDS ORDERED: LACTATED RINGERS 1,000 ML BAG IV ONE (07:58)
[2017-06-26] MEDS ORDERED: MORPHINE SULFATE (PF) 0.3 MG/0.3 ML SYR ONE (07:58)
[2017-06-26] MEDS ORDERED: ePHEDrine SULFATE/0.9% NACL/PF 50 MG/5 ML SYRINGE IV ONE (07:58)
[2017-06-26] MEDS ORDERED: CELLULOSE,OXIDIZED 1 EACH EACH MISCELLANE ONE (08:21)
[2017-06-26] MEDS ORDERED: MORPHINE SULFATE 4 MG/ML SYRINGE IVP PRN (08:26)
[2017-06-26] MEDS ORDERED: NALOXONE 0.4 MG/ML 1 ML VIAL IV PRN ×2 (08:26→08:49)
[2017-06-26] MEDS ORDERED: METOCLOPRAMIDE 5 MG/ML 2 ML VIAL IVP PRN (08:49)
[2017-06-26] MEDS ORDERED: ONDANSETRON 4 MG/2 ML VIAL IVP PRN ×2 (08:49→18:52)
[2017-06-26] MEDS ORDERED: diphenhydrAMINE 25 MG CAP PO PRN (08:49)
[2017-06-26] MEDS ORDERED: diphenhydrAMINE 50 MG/ML 1 ML VIAL IVP PRN (08:49)
[2017-06-26] MEDS ORDERED: ACETAMINOPHEN TAB 325 MG TAB PO PRN (08:49)
[2017-06-26] MEDS ORDERED: ZOLPIDEM 5 MG TAB PO PRN (08:49)
[2017-06-26] MEDS ORDERED: diphenhydrAMINE 50 MG CAP PO PRN (08:49)
--- NOTE | 2017-06-26 08:55 | P.OP ---
Date of Procedure: 06/26/17 Preoperative Diagnosis: Intrauterine at term: Previous sections: Family planning Postoperative Diagnosis: Same with adhesions Procedure(s) Performed: Repeat low transverse section with right partial salpingectomy Anesthesia: spinal Surgeon: Carl Campbell Congressional Assistant #1: Cherry Desir Estimated Blood Loss (ml): 800 IV fluids (ml): 1,100 Urine output (ml): 25 Pathology: other (Placenta) Condition: stable Disposition: floor Operative Findings: Significant adhesions from prior sections. Fascial layer and subcuticular tissues were congealed into a very hard mass making fascial development challenging. There was also significant adhesions of the bladder rate rising very high on the uterine wall from previous section. Left fallopian tube had previously been removed due to an ectopic Description of Procedure: Patient was taken to the operating suite where a spinal anesthetic was found be adequate. She was prepped and draped in normal sterile fashion and placed in dorsal supine position with leftward tilt. Initially a Pfannenstiel skin incision was made and this incision was then carried through to underlying layer of the fashion with second knife. Fascia was then nicked in the midline and this opening was extended with Aguilar scissors and knife due to significant scarring. Once this was accomplished superior and inferior aspect of this incision were then again dissected with knife and Bovie cautery bluntly all to allow for the opening of the abdomen to be large enough to deliver the baby. Once this was accomplished the peritoneal layer was opened bluntly and then extended superiorly and inferiorly with good visualization of both bowel bladder. Bladder blade was then placed bladder tissues identified anterosuperiorly with Metzenbaum scissors and then across face the uterus with blunt dissection of the bladder out of the operative field as much as was possible. Knife was then used to incise uterus and this opening was extended bluntly following entry with hemostat. Head was then atraumatically delivered nuchal cord 1 was reduced and mouth nares were bulb suctioned. Anterior and posterior shoulders were then easily delivered by downward and upward traction followed by the remainder the baby. Nursery personnel was then present to assume care and the umbilical cord was clamped cut usual fashion. Placenta was then delivered intact and Pitocin was added to the IV. Uterus was then exteriorized cleared of clots and debris and closed in 2 layers with 0 Vicryl suture. Once excellent hemostasis was obtained fallopian tube on the right side was identified and at the midpoint was grasped with a hemostat. A window was then created in the mesosalpinx with Bovie cautery and 2 proximal and 2 distal 2-0 silk sutures were placed approximately 2 cm apart with the intervening segment excised and tips cauterized. Blood and debris was then suctioned from the posterior cul-de-sac and uterus was reinserted into the abdomen. One piece of Interceed was then placed over the incision. Peritoneal layer was then closed with 0 Vicryl suture fascial layer was closed with 0 Vicryl suture. The superior aspect of the incision was then developed with Bovie cautery to release some scar tissue to allow for the skin to come together better one layer of 3-0 Vicryl was placed in the deep subcuticular tissues reapproximate the skin and the skin was then closed with lauro. Patient tolerated surgery well sponge, lap, needle counts were all correct 2. Patient was then taken to the recovery room in stable and satisfactory condition.
[2017-06-26] MEDS: diphenhydrAMINE 50 MG/ML 1 ML VIAL IVP PRN ×2 (10:44→17:53)
[2017-06-26] MEDS: KETOROLAC 30 MG/ML 1 ML VIAL IVP PRN (21:39)
[2017-06-26] MEDS: SENNOSIDES-DOCUSATE SODIUM 1 EACH TAB PO SCH (21:52)
[2017-06-27] MEDS: KETOROLAC 30 MG/ML 1 ML VIAL IVP PRN (04:43)
--- NOTE | 2017-06-27 08:03 | P.PN ---
Progress Note - Text Date:06/27 Time:711 Patient is status post . Patient seen this morning with VAS score of 2. c/o of pruritus, c/o nausea/vomiting. She is comfortable and doing well today
[2017-06-27 08:09] LABS: Basophils % (A) 0 %; Eosinophils # (A) 0.2 k/uL (0-0.7); Eosinophils % (A) 1 %; HCT 33.3 % (34.0-46.0); HGB 10.5 gm/dL (11.4-16.0); Hypochromasia Slight; Lymphocytes # (A) 2.2 k/uL (1.0-4.8); Lymphocytes % (A) 12 %; MCH 27.4 pg (25.0-35.0); MCHC 31.7 g/dL (31.0-37.0); MCV 86.5 fL (80.0-100.0); Mean Platelet Volume 7.1; Monocytes # (A) 0.8 k/uL (0-1.0); Monocytes % (A) 5 %; Neutrophils # (A) 14.4 k/uL (1.3-7.7); Neutrophils % (A) 80 %; Platelet Count 393 k/uL (150-450); RBC 3.85 m/uL (3.80-5.40); RDW 14.3 % (11.5-15.5); WBC 17.9 k/uL (3.8-10.6)
--- NOTE | 2017-06-27 08:41 | P.PNOBGPC ---
Subjective - Subjective Principal diagnosis: S/P RLTCS Interval history: PT seen and examined. Pain controlled. Tolerating clears. Patient reports: Reports appetite normal, Reports voiding normally, Reports pain well controlled, Reports ambulating normally [address]: doing well Objective - Vital Signs Latest vital signs: Vital Signs Temp Pulse Resp BP Pulse Ox 06/27/17 08:00 98.6 F 77 18 76/48 06/27/17 04:18 98.0 F 70 18 107/68 100 06/27/17 03:40 18 06/27/17 01:45 17 06/27/17 00:00 97.8 F 72 18 106/70 100 06/26/17 21:50 18 06/26/17 20:00 98.2 F 69 18 103/64 98 06/26/17 18:00 18 06/26/17 16:00 97.8 F 63 18 114/66 95 06/26/17 14:43 16 06/26/17 13:00 16 06/26/17 12:20 97.2 F L 89 16 112/72 06/26/17 11:26 16 97 06/26/17 11:00 72 16 06/26/17 10:30 97.0 F L 69 16 106/60 97 06/26/17 09:50 96.3 F L 75 16 99/54 97 06/26/17 09:35 71 16 97/52 97 06/26/17 09:20 93 16 98/50 97 06/26/17 09:05 74 16 97/46 97 06/26/17 08:50 97.4 F L 78 16 98/52 97 Intake and Output 06/26/17 06/27/17 06/27/17 22:59 06:59 14:59 Intake Total 1000 Output Total 1400 200 Balance -400 -200 Intake: IV 1000 Invasive Line 1 1000 Output: Urine 1300 200 Uretheral (Ellis) 900 Emesis 100 - Exam Lungs: bilateral: normal Chest: Normal S1, Normal S2 Extremities: Present: normal Abdomen: Present: normal appearance, soft. Absent: distention, tenderness Incision: Present: normal, dry, intact Uterus: Present: normal, firm - Labs Labs: Abnormal Lab Results - Last 24 Hours (Table) 06/27/17 Range/Units 08:00 WBC 17.9 H (3.8-10.6) k/uL Hgb 10.5 L (11.4-16.0) gm/dL Hct 33.3 L (34.0-46.0) % Neutrophils # 14.4 H (1.3-7.7) k/uL Assessment and Plan (1) S/P repeat low transverse Current Visit: Yes Status: Acute Code(s): Z98.891 - HISTORY OF UTERINE SCAR FROM PREVIOUS SURGERY SNOMED Code(s): 783231301 Plan: 1. increase ambulation 2. advance diet 2. oral pain meds
[2017-06-27] MEDS: HYDROcodone/APAP 7.5-325MG 1 EACH TAB PO PRN ×3 (09:32→21:37)
[2017-06-27] MEDS: SENNOSIDES-DOCUSATE SODIUM 1 EACH TAB PO SCH ×2 (10:17→23:46)
[2017-06-27] MEDS: IBUPROFEN 600 MG TAB PO PRN ×2 (12:53→19:21)
[2017-06-28] MEDS: IBUPROFEN 600 MG TAB PO PRN ×2 (00:27→07:54)
[2017-06-28] MEDS: HYDROcodone/APAP 7.5-325MG 1 EACH TAB PO PRN (03:41)
--- NOTE | 2017-06-28 08:56 | P.DS ---
Providers Date of admission: 06/26/17 05:52 Expected date of discharge: 06/28/17 Attending physician: Carl Campbell Primary care physician: Stated None - Discharge Diagnosis(es) (1) S/P repeat low transverse Current Visit: Yes Status: Acute Hospital Course: Patient presented for repeat low transverse and underwent this procedure without complication. She'll be discharged home post operative day # 2 in stable condition to follow-up with Dr. Mg in 1 week. Plan - Discharge Summary Discharge Rx Participant: Yes New Discharge Prescriptions: New HYDROcodone/APAP 7.5-325MG [[place] 7.5-325] 1 each PO Q6H PRN #30 tab PRN Reason: Severe Pain Ibuprofen [Motrin] 600 mg PO Q6HR PRN #30 tab PRN Reason: Mild Pain Or Fever >= 100.5 Discharge Medication List HYDROcodone/APAP 7.5-325MG [[place] 7.5-325] 1 each PO Q6H PRN #30 tab 06/28/17 [ Rx] Ibuprofen [Motrin] 600 mg PO Q6HR PRN #30 tab 06/28/17 [Rx] Follow up Appointment(s)/Referral(s): Carl Campbell DO [Doctor of Osteopathic Medicine] - 1 Week Discharge Disposition: HOME SELF-CARE
[2017-06-28 09:02] VITALS: BP 96/60; PULSE 62; RESP 16; TEMP 98.3
== END 2017-06-28 09:30 | disposition home or self-care (01) | DRG 766 ==
LOC: 4FBP 05:52
PROVIDERS: ADMIT Obstetrics & Gynecology; ATTEND Obstetrics & Gynecology
PROC: 0UB50ZZ Excision of Right Fallopian Tube, Open Approach (ICD-10-PCS; 2017-06-26)
PROC: 00HU33Z Insertion of Infusion Device into Spinal Canal, Percutaneous Approach (ICD-10-PCS; 2017-06-26)
PROC: 3E0R3NZ Introduction of Analgesics, Hypnotics, Sedatives into Spinal Canal, Percutaneous Approach (ICD-10-PCS; 2017-06-26)
PROC: 10D00Z1 Extraction of Products of Conception, Low, Open Approach (ICD-10-PCS; principal; 2017-06-26 08:00)
DX: O34.211 Maternal care for low transverse scar from previous cesarean delivery (principal); K21.9 Gastro-esophageal reflux disease without esophagitis; O99.62 Diseases of the digestive system complicating childbirth; L29.9 Pruritus, unspecified; Z37.0 Single live birth; Z3A.39 39 weeks gestation of pregnancy; Z80.3 Family history of malignant neoplasm of breast; Z90.89 Acquired absence of other organs
CPT/HCPCS: 85025; 86850; 86900; 86901; 88302; 88307

== ENCOUNTER 2020-11-16 19:15 | Emergency (ER) | payer BC, OTHER ==
[2020-11-16 19:38] VITALS: BP 103/58; PULSE 79; RESP 16; TEMP 98
[2020-11-16] MEDS ORDERED: SODIUM CHLORIDE 0.9% 1,000 ML IV STA (20:35)
[2020-11-16] MEDS ORDERED: diphenhydrAMINE 50 MG/ML 1 ML VIAL IVP STA (21:10)
[2020-11-16] MEDS ORDERED: FAMOTIDINE 20 MG/2 ML VIAL IV STA (21:10)
[2020-11-16] MEDS ORDERED: methylPREDNISolone SOD SUCCI 125 MG/2 ML VIAL IV STA (21:10)
[2020-11-16 21:11] LABS: Appearance,Urine Turbid (Clear); Bacteria,Urine Rare /hpf; Bilirubin,Urine Negative (Negative); Blood,Urine Negative (Negative); Color,Urine Yellow; Glucose,Urine (UA) Negative (Negative); Ketones,Urine Negative (Negative); Leukocyte Esterase,Urine Negative (Negative); Mucus,Urine Rare /hpf; Nitrite,Urine Negative (Negative); Protein,Urine Negative (Negative); RBC,Urine 1 /hpf (0-5); Specific Gravity,Urine 1.017 (1.001-1.035); Squamous Epithelial Cell,Urine 3 /hpf (0-4)
[2020-11-16 21:16] LABS: Basophils % (A) 0 %; Eosinophils # (A) 0.2 k/uL (0-0.7); Eosinophils % (A) 3 %; HCT 39.2 % (34.0-46.0); HGB 13.6 gm/dL (11.4-16.0); Lymphocytes # (A) 2.1 k/uL (1.0-4.8); Lymphocytes % (A) 33 %; MCH 32.7 pg (25.0-35.0); MCHC 34.6 g/dL (31.0-37.0); MCV 94.4 fL (80.0-100.0); Mean Platelet Volume 7.8; Monocytes # (A) 0.2 k/uL (0-1.0); Monocytes % (A) 4 %; Neutrophils # (A) 3.8 k/uL (1.3-7.7); Neutrophils % (A) 58 %; Platelet Count 278 k/uL (150-450); RBC 4.15 m/uL (3.80-5.40); RDW 12.7 % (11.5-15.5); WBC 6.5 k/uL (3.8-10.6)
[2020-11-16 21:23] LABS: ALT 10 U/L (4-34); AST 19 U/L (14-36); African American GFR (CKD) >90 (>60 ml/min/1.73 sqM); Albumin 3.9 g/dL (3.5-5.0); Alkaline Phosphatase 44 U/L (38-126); Anion Gap 7 mmol/L; Blood Urea Nitrogen 11 mg/dL (7-17); Calcium 9.1 mg/dL (8.4-10.2); Carbon Dioxide 25 mmol/L (22-30); Chloride 107 mmol/L (98-107); Glucose 98 mg/dL (74-99); Lipase 192 U/L (23-300); Non-African American GFR(CKD) >90 (>60 ml/min/1.73 sqM); Potassium 3.8 mmol/L (3.5-5.1); Sodium 139 mmol/L (137-145); Total Bilirubin 0.4 mg/dL (0.2-1.3); Total Protein 6.2 g/dL (6.3-8.2)
[2020-11-16 21:39] LABS: HCG,Quantitative Serum <2.4 mIU/mL
--- NOTE | 2020-11-16 22:09 | CT ---
EXAMINATION TYPE: CT abdomen pelvis w con DATE OF EXAM: 11/16/2020 COMPARISON: None HISTORY: epigastric pain CT DLP: 685.1 mGycm Automated exposure control for dose reduction was used. CONTRAST: Performed with IV Contrast, patient injected with 100 mL of Isovue 300. Images obtained from the diaphragm to the floor the pelvis with IV contrast Isovue 100 mL. FINDINGS: Heart size is normal. There is no pericardial effusion. There is no pleural effusion. Liver spleen st omach appear intact. The bile ducts are nondilated. There is no sign of pancreatic mass. Gallbladder is contracted. There is no adrenal mass. Kidneys show satisfactory contrast opacification. There is no hydronephrosi s. Ureters are not dilated. There is no retroperitoneal adenopathy. Bladder distends smoothly. There is no inguinal hernia. There is no free fluid in the pelvis. Cecum appears normal. Appendix extends superiorly adjacent to the iliac vessels. There is no sign of appendicitis. Uterus is anteverted. There is no evidence of a pelvic mass. There is no mesenteric edema. There is no ascites or free air. There is no bowel obstruction. I see n o intestinal wall thickening. The lumbar vertebra have normal alignment. Posterior elements are intact. There is no compression fra cture. Bony pelvis is intact. The hip joints are intact. There is no hip dysplasia. IMPRESSION: Normal appendix. No sign of acute abdomen and pelvis.
[2020-11-16] MEDS ORDERED: AZITHROMYCIN 500 MG TAB PO STA (23:18)
[2020-11-16] MEDS ORDERED: metroNIDAZOLE 500 MG TAB PO STA (23:18)
[2020-11-16] MEDS ORDERED: cefTRIAXone IN SWFI 1,000 MG/10 ML SYRINGE IVP STA (23:18)
[2020-11-16] MEDS ORDERED: ACET/COD 300 MG/30 MG STARTER PACK 6 TAB BTL PO STA ×2 (23:20)
--- NOTE | 2020-11-16 23:20 | ED ---
Abdominal Pain HPI - General Chief Complaint: Abdominal Pain Stated Complaint: abd pain Time Seen by Provider: 11/16/20 20:18 Source: patient Mode of arrival: ambulatory Limitations: no limitations - History of Present Illness Initial Comments: 30-year-old female patient presents to the emergency department today for evaluation of abdominal pain. Patient states the pain started about 6 days ago on her lower abdomen. States the pain is now generalized getting a sharp stabbing pain in the left upper quadrant. Report some nausea, no vomiting. States she is having normal bowel movements. States she was seen and evaluated at [facility] and had test and ultrasound which was negative. She denies any fever or chills. States she has been feeling fatigued and unwell. Denies any hematuria, dysuria, urinary frequency, urinary urgency. Has had ectopic in the past. Did have tubal ligation to the remaining fallopian tube. Patient denies any recent rash, cough, shortness of breath, chest pain, back pain, numbness, tingling, dizziness, weakness, headache, visual changes, or any other complaints. - Related Data Home Medications Medication Instructions Recorded Confirmed No Known Home Medications 11/16/20 11/16/20 Allergies Allergy/AdvReac Type Severity Reaction Status Date / Time No Known Allergies Allergy Verified 11/16/20 23:23 Review of Systems ROS Statement: Those systems with pertinent positive or pertinent negative responses have been documented in the HPI. ROS Other: All systems not noted in ROS Statement are negative. Past Medical History Past Medical History: No Reported History Additional Past Medical History / Comment(s): OCCASIONAL MIGRAINE, GERD WHILE . History of Any Multi-Drug Resistant Organisms: None Reported Past Surgical History: Section, Tonsillectomy, Tubal Ligation Additional Past Surgical History / Comment(s): ectopic with rupture (08/24/16) Past Anesthesia/Blood Transfusion Reactions: Motion Sickness, Postoperative Nausea & Vomiting (PONV) Past Psychological History: Anxiety Smoking Status: Never smoker Past Alcohol Use History: None Reported Past Drug Use History: None Reported - Past Family History Mother Family Medical History: Cancer Additional Family Medical History / Comment(s): breast cancer General Exam Limitations: no limitations General appearance: alert, in no apparent distress, other (This is a well- developed, well-nourished adult female patient in no acute distress. Vital signs upon presentation temperature 98.0F, pulse 79, respirations 16, blood pressure 103/58, pulse ox 97% on room air.) ENT exam: Present: normal exam, normal oropharynx, mucous membranes moist Respiratory exam: Present: normal lung sounds bilaterally. Absent: respiratory distress, wheezes, rales, rhonchi, stridor Cardiovascular Exam: Present: regular rate, normal rhythm, normal heart sounds. Absent: systolic murmur, diastolic murmur, rubs, gallop, clicks GI/Abdominal exam: Present: soft, tenderness (generalized), normal bowel sounds. Absent: distended, guarding, rebound, rigid Neurological exam: Present: alert, oriented X3, CN II-XII intact Psychiatric exam: Present: normal affect, normal mood Skin exam: Present: warm, dry, intact, normal color. Absent: rash Course Vital Signs 11/16/20 19:33 Temperature 98.0 F Pulse Rate 79 Respiratory 16 Rate Blood Pressure 103/58 O2 Sat by Pulse 97 Oximetry Medical Decision Making - Medical Decision Making 30-year-old female patient presents to the emergency department today for evaluation of abdominal pain and nausea. Physical examination did reveal mild generalized abdominal tenderness worse over the periumbilical region. Labs reviewed and are unremarkable. Urinalysis shows no sign of infection. CT abdomen and pelvis was negative. She did have negative transvaginal ultrasound at [facility] couple of days ago. I did ask patient about possibility of sexually transmitted infections, she reports low concern. We did add GC to the urine. She will be given antibiotics here. To be discharged follow-up with her primary care physician for recheck in 1-2 days. Return parameters were discussed in detail. She verbalizes understanding and agrees with this plan. Case discussed with my attending Dr. Juan. - Lab Data Result diagrams: 11/16/20 20:56 11/16/20 20:56 Lab Results 11/16/20 11/16/20 11/16/20 Range/Units 20:56 20:56 20:56 WBC 6.5 (3.8-10.6) k/uL RBC 4.15 (3.80-5.40) m/uL Hgb 13.6 (11.4-16.0) gm/dL Hct 39.2 (34.0-46.0) % MCV 94.4 (80.0-100.0) fL MCH 32.7 (25.0-35.0) pg MCHC 34.6 (31.0-37.0) g/dL RDW 12.7 (11.5-15.5) % Plt Count 278 (150-450) k/uL MPV 7.8 Neutrophils % 58 % Lymphocytes % 33 % Monocytes % 4 % Eosinophils % 3 % Basophils % 0 % Neutrophils # 3.8 (1.3-7.7) k/uL Lymphocytes # 2.1 (1.0-4.8) k/uL Monocytes # 0.2 (0-1.0) k/uL Eosinophils # 0.2 (0-0.7) k/uL Basophils # 0.0 (0-0.2) k/uL Sodium 139 (137-145) mmol/L Potassium 3.8 (3.5-5.1) mmol/L Chloride 107 (98-107) mmol/L Carbon Dioxide 25 (22-30) mmol/L Anion Gap 7 mmol/L BUN 11 (7-17) mg/dL Creatinine 0.48 L (0.52-1.04) mg/dL Est GFR (CKD-EPI)AfAm >90 (>60 ml/min/1.73 sqM) Est GFR (CKD-EPI)NonAf >90 (>60 ml/min/1.73 sqM) Glucose 98 (74-99) mg/dL Plasma Lactic Acid Stephon (0.7-2.0) mmol/L Calcium 9.1 (8.4-10.2) mg/dL Total Bilirubin 0.4 (0.2-1.3) mg/dL AST 19 (14-36) U/L ALT 10 (4-34) U/L Alkaline Phosphatase 44 (38-126) U/L Total Protein 6.2 L (6.3-8.2) g/dL Albumin 3.9 (3.5-5.0) g/dL Lipase 192 (23-300) U/L HCG, Quant <2.4 mIU/mL Urine Color Yellow Urine Appearance Turbid H (Clear) Urine pH 7.0 (5.0-8.0) Ur Specific [place] 1.017 (1.001-1.035) Urine Protein Negative (Negative) Urine Glucose (UA) Negative (Negative) Urine Ketones Negative (Negative) Urine Blood Negative (Negative) Urine Nitrite Negative (Negative) Urine Bilirubin Negative (Negative) Urine Urobilinogen 3.0 (<2.0) mg/dL Ur Leukocyte Esterase Negative (Negative) Urine RBC 1 (0-5) /hpf Ur Squamous Epith Cells 3 (0-4) /hpf Urine Bacteria Rare H (None) /hpf Urine Mucus Rare H (None) /hpf 11/16/20 Range/Units 20:56 WBC (3.8-10.6) k/uL RBC (3.80-5.40) m/uL Hgb (11.4-16.0) gm/dL Hct (34.0-46.0) % MCV (80.0-100.0) fL MCH (25.0-35.0) pg MCHC (31.0-37.0) g/dL RDW (11.5-15.5) % Plt Count (150-450) k/uL MPV Neutrophils % % Lymphocytes % % Monocytes % % Eosinophils % % Basophils % % Neutrophils # (1.3-7.7) k/uL Lymphocytes # (1.0-4.8) k/uL Monocytes # (0-1.0) k/uL Eosinophils # (0-0.7) k/uL Basophils # (0-0.2) k/uL Sodium (137-145) mmol/L Potassium (3.5-5.1) mmol/L Chloride (98-107) mmol/L Carbon Dioxide (22-30) mmol/L Anion Gap mmol/L BUN (7-17) mg/dL Creatinine (0.52-1.04) mg/dL Est GFR (CKD-EPI)AfAm (>60 ml/min/1.73 sqM) Est GFR (CKD-EPI)NonAf (>60 ml/min/1.73 sqM) Glucose (74-99) mg/dL Plasma Lactic Acid Stephon 0.7 (0.7-2.0) mmol/L Calcium (8.4-10.2) mg/dL Total Bilirubin (0.2-1.3) mg/dL AST (14-36) U/L ALT (4-34) U/L Alkaline Phosphatase (38-126) U/L Total Protein (6.3-8.2) g/dL Albumin (3.5-5.0) g/dL Lipase (23-300) U/L HCG, Quant mIU/mL Urine Color Urine Appearance (Clear) Urine pH (5.0-8.0) Ur Specific [place] (1.001-1.035) Urine Protein (Negative) Urine Glucose (UA) (Negative) Urine Ketones (Negative) Urine Blood (Negative) Urine Nitrite (Negative) Urine Bilirubin (Negative) Urine Urobilinogen (<2.0) mg/dL Ur Leukocyte Esterase (Negative) Urine RBC (0-5) /hpf Ur Squamous Epith Cells (0-4) /hpf Urine Bacteria (None) /hpf Urine Mucus (None) /hpf - Radiology Data Radiology results: report reviewed, image reviewed CT abdomen and pelvis was obtained. Report was reviewed in its entirety. Impression by Dr. Clarke shows normal appendix. No sign of acute abdomen and pelvis. Disposition Clinical Impression: Abdominal pain Disposition: HOME SELF-CARE Condition: Good Instructions (If sedation given, give patient instructions): Abdominal Pain (ED) Additional Instructions: Take medication as directed. Follow-up with the primary care physician for recheck in 1-2 days. If pain symptoms persist consider colonoscopy or upper GI endoscopy. Return for any new, worsening, or concerning symptoms. Is patient prescribed a controlled substance at d/c from ED?: No Referrals: None,Stated [Primary Care Provider] - 1-2 days Time of Disposition: 23:20
== END 2020-11-16 23:58 | disposition home or self-care (01) ==
LOC: EC 19:15
DX: R10.84 Generalized abdominal pain (principal)
CPT/HCPCS: 36415; 80053; 83605; 83690; 85025; 81001; 84702; 74177; 96374; 96375 ×3; 96361; 99284; J1200; J2930; J0696; Q9967

== ENCOUNTER → 2023-11-11 | Outpatient (CLI) | payer BC ==
[2023-11-12 02:21] LABS: Basophils # (A) 0.03 X 10*3/uL (0.00-0.10); Basophils % (A) 0.4 %; Eosinophils # (A) 0.61 X 10*3/uL (0.04-0.35); Eosinophils % (A) 7.2 %; HCT 43.6 % (37.2-46.3); HGB 14.5 g/dL (12.0-15.0); Lymphocytes # (A) 2.85 X 10*3/uL (0.90-5.00); Lymphocytes % (A) 33.6 %; MCH 31.7 pg (27.0-32.0); MCHC 33.3 g/dL (32.0-37.0); MCV 95.2 FL (80.0-97.0); Mean Platelet Volume 10.8 FL (9.5-12.2); Monocytes # (A) 0.43 X 10*3/uL (0.20-1.00); Monocytes % (A) 5.1 %; NRBC Per 100 WBC 0 X 10*3/uL (0.00-0.01); Neutrophils # (A) 4.55 X 10*3/uL (1.80-7.70); Neutrophils % (A) 53.6 %; Platelet Count 314 X 10*3/uL (140-440); RBC 4.58 X 10*6/uL (4.10-5.20); RDW 12.1 % (11.5-14.5); WBC 8.48 X 10*3/uL (4.50-10.00)
[2023-11-12 02:59] LABS: ALT 14 U/L (8-44); AST 20 U/L (13-35); HCG,Quantitative Serum <3.0 mIU/mL (0.0-6.0)
== END | disposition home or self-care (01) ==
LOC: LABWHC1 15:53
PROVIDERS: ATTEND Dermatology MOHS-Micrographic Surgery
DX: L71.8 Other rosacea (principal)
CPT/HCPCS: 36415; 82465; 84450; 84460; 84478; 84702; 85025

== ENCOUNTER → 2024-05-26 | Outpatient (CLI) | payer BC ==
--- NOTE | 2024-05-28 14:55 | BMR ---
EXAM DATE: 05/27/2024 EXAM DESCRIPTION: MRI-Breast Bilat (W/WO Contrast) INDICATION: >20% lifetime risk for malignancy, high risk surveillance. COMPARISON: Comparison was made to prior relevant imaging available in PACS TECHNIQUE: Multiplanar multisequence breast MRI was performed prior to and after administration of 6.5 mL of Gadobutrol intravenously. Post processing was performed utilizing a [employer] workstation. The technical portion of this study was performed at [facility] with radiological interpretation by [facility] radiology. FINDINGS: There is minimal, symmetric background parenchymal enhancement in breasts that are composed of heterogeneous fibroglandular tissue. RIGHT BREAST: Review of the dynamic contrast enhanced series shows no rapidly enhancing masses, suspicious enhancement patterns or other abnormalities. The T2 weighted series show no abnormality. LEFT BREAST: Review of the dynamic contrast enhanced series shows 2 areas of non mass enhancement: * at 1-2 o'clock position approximately 2.3 cm from the nipple measuring 1.1 cm in length * at 1-2 o'clock position 3-4 cm from the nipple measuring approximately 1.3 cm in length Both areas of non mass enhancement demonstrate benign progressive enhancement kinetics. Otherwise no rapidly enhancing masses or suspicious enhancement pattern in the left breast. LYMPH NODES: No axillary or internal mammary lymphadenopathy. IMPRESSION: Right breast: BI-RADS Category 1-negative. No MRI evidence of malignancy. Recommendation: MRI screening in 1 year Left breast: BI-RADS Category 3-probably benign. Two areas of non mass enhancement at 1-2 o'clock position measuring 1.1 cm and 1.3 cm in length Recommendation: Further evaluation with diagnostic mammogram of the left breast and targeted ultrasound if needed. Further management based on imaging findings. If no definitive mammographic or sonographic correlate, recommend short-term follow-up with MRI. If persistent at this time, breast MRI for definitive diagnosis should be considered. OVERALL ASSESSMENT- BI-RADS 3 ANNUAL SCREENING BREAST MRI IN ADDITION TO MAMMOGRAPHY IS RECOMMENDED IN PATIENTS WITH LIFETIME RISK OF BREAST CANCER >20% MTDD
== END | disposition home or self-care (01) ==
LOC: RADMRIMAIN 15:24
PROVIDERS: ATTEND Obstetrics & Gynecology
DX: Z15.01 Genetic susceptibility to malignant neoplasm of breast (principal)
CPT/HCPCS: 77049; A9585

== ENCOUNTER → 2024-07-27 | Outpatient (CLI) | payer BC ==
--- NOTE | 2024-07-27 13:50 | MM ---
Reason for Exam: High risk patient. Baseline mammogram. Patient History: Menarche at age 15. First Full-Term at age 21. Patient has history of breast feeding. Hormonal Contraceptives for 6 months. Maternal aunt had breast cancer at or over age 50. Maternal cousin had breast cancer under age 50. Maternal cousin had breast cancer under age 50. Mother had breast cancer at or over age 50. Last menstrual period: 07/07/2024 Prior Study Comparison: Patient's first Mammogram. Tissue Density: The breasts are heterogeneously dense, which may obscure small masses. Findings: Analyzed By CAD. The right breast was also imaged as this is the patient's baseline mammographic exam. No significant mass, suspicious microcalcification, or other discrete abnormality is seen. The patient's outside MRI report is reviewed in regards to the left breast. No mammographic correlate is seen. Overall Assessment: Probably benign, BI-RAD 3 Management: Diagnostic Breast MRI of the left breast in 6 months. Results were given to the patient verbally at the time of exam. Patient should continue monthly self-breast exams. A clinical breast exam by your physician is recommended on an annual basis. This exam should not preclude additional follow-up of suspicious palpable abnormalities. [facility], , 07/27/2024 1:47 PM. Electronically signed and approved by: Madina Hernandez M.D. Radiologist
== END | disposition home or self-care (01) ==
LOC: RADMAMWWP 13:00
PROVIDERS: ATTEND Obstetrics & Gynecology
DX: R92.8 Other abnormal and inconclusive findings on diagnostic imaging of breast (principal); R92.333 Mammographic heterogeneous density, bilateral breasts; Z92.0 Personal history of contraception; Z80.3 Family history of malignant neoplasm of breast
CPT/HCPCS: 77062; 77066